=== PATIENT | female | born 2005 | race Two or more races ===

== ENCOUNTER 2025-04-15 11:10 | Outpatient (AMB) | payer OTHER, SELFPAY ==
--- NOTE | 2025-04-15 11:32 | AMB.OBINITIA ---
Vital Signs 04/15/25 11:33 Height 1.52 m Height Method Stated Weight 55.508 kg Weight Measurement Method Standing Scale BMI 23.8 BP 120/79 Blood Pressure Source Automatic Cuff Blood Pressure Location Left Upper Arm Position Sitting Respiration 16 Pulse 85 Pulse Source Monitor Temp 97.2 F Temp Source Oral Pulse Oximetry (%) 98 Oxygen Delivery Method Room Air Allergies/Home Meds Allergies & Medications Allergies No Known Allergies Allergy (Verified 04/15/25 11:35) Medication Reconciliation No Known Home Medications 04/15/25 [History Confirmed 04/15/25] Intake Visit Data Collection New Patient or Established: New Patient (never been to [facility]) Reason for Visit:: OB TRANSFER Seen by Clinical Staff ONLY (RN/MA): No Professor Of Graphic Design Required: No Do You Feel Safe at Home: Yes Authorities Contacted: N/A PCP or OBGYN visit in last 3 months: Yes Hx Now: Yes Are you currently on any form of Control: No Last menstrual period: 08/02/24 Pain Present Currently: No Pain Scale Used: Ivory-Schmitz/Numerical Pain scale:: 0 Smoking Status Smoking Status: Never smoker Questionnaires Covid-19 Vaccine Questionnaire Has patient been vacinated for Covid-19 Have you been vacinated for Covid-19: Yes PHQ-9 PHQ-2 Over the last 2 weeks, how often have you been bothered by any of the following problems? 1. Little interest or pleasure in doing things: not at all 2. Feeling down, depressed, or hopeless: not at all Total score: 0 PHQ-9 3. Trouble falling or staying asleep, or sleeping too much: Not at all 4. Feeling tired or having little energy: Not at all 5. Poor appetite or overeating: Not at all 6. Feeling bad about yourself - or that you are a failure or have let yourself or your family down: Not at all 7. Trouble concentrating on things, such as reading the newspaper or watching television: Not at all 8. Moving or speaking so slowly that other people could have noticed? - Or the opposite - being so fidgety or restless that you have been moving around a lot more than usual: not at all 9. Thoughts that you would be better off or of hurting yourself in some way: Not at all Total score: 0 If you checked off any problems, how difficult have these problems made it for you to do your work, take care of things at home, or get along with other people?: not difficult at all Source: Developed by Drs. Hernando Taylor, Brinda George, Jose Juan Way and colleagues, with an educational dilan from [employer]. Depression screen completed yes Social History Living Situation History Marital Status: Lives With: Family Housing: House Tobacco History Smoking Status: Never smoker Second Hand Smoke Exposure: No Alcohol History Alcohol Intake: Never Domestic Abuse History Do You Feel Safe at Home: Yes History of Present Illness HPI Narrative 19-year-old 2 para 1 for OBI. Patient has records. Patient was seen at [place] for her initial care. Father the baby is deployed so mom moved back with her mom for the rest of the . Last period August 02, 2024. Estimated due date based on last menstrual period May 09, 2025. First ultrasound was November 29, 2024. Patient was 17 weeks 2 and this confirmed due date. Patient then had a 21-week ultrasound that also confirmed due date of May 09, 2025. Denies social habits. Denies surgery. Denies chronic illness. Patient is A+, antibody screen negative, RPR nonreactive, rubella immune, hepatitis B negative, hep C negative, HIV negative, GC and Chlamydia were negative. Patient had a normal 1 hour. Her H&H is 12.5/36. And her NIPT and carrier screens were all negative. Occasional contractions and pressure. Denies leaking or bleeding at this time and reports good mood OB Initial Visit OB Flowsheet OB Flowsheet Initial Weight: Not Recorded Date <del>?</del> EGA Weight BP Alb Glu CTX Pres Fundal ht FHR Mov Dilation Station Effacement Hx Notes Visit Note 04/15/25 <del>?</del> 36w 4d 55.508 kg 120/79 occasional cephalic 36 145 active 19-year-old 2 para 1 for OBI with records. Patient has been followed at [facility] for her care. Her partner is deployed. She has not had any problems with the . Reports good movement. Denies leaking and bleeding. Occasional contraction impression GBS today. Discussed labor precautions. Kick count twice a day. Discussed ER precautions and danger signs symptoms with parameters. Return in a week for OB check Menstrual History Menstrual reliability: definite Flow: normal Menstrual regularity: regular Monthly: Yes Age at menarche: 13 On control pills at conception: No OB History : 2 Para: 1 Hx # Pregnancies: 0 Hx Total # of Abortions (Spontaneous & Elective): 0 # of Living Children: 1 Delivery History 1st : Child's name: NOT PROVIDED date: 07/08/23 sex: female Delivery type: vaginal weight (lbs): 3175.147 g History of depression before or after : No Infection History & Risk Evaluation History of STDs: none HIV risk evaluation: low risk Hepatitis B risk evaluation: low risk Patient or partner has history of Genital Herpes: No Varicella/chicken pox status: immunized Genetic Screening & History Genetic Screening/Teratology Counseling - Includes patient, baby's father, or anyone in either family with: 1. Patient's age 35 years or older as of estimated date of delivery: No 2. Thalassemia ([place], Norwegian, Mediterranean, or Background); MCV less than 80: No 3. Neural Tube Defect (Meningomyelocele, Spina Bifida, or Anencephaly): No 4. Congenital Heart Defect: No 5. Down Syndrome: No 6. Tomas-Sachs (Ashkenazi Roman Catholic, Cajun, Czech [place]): No 7. Romain Disease (Ashkenazi Roman Catholic): No 8. Familial Dysautonomia (Ashkenazi Roman Catholic): No 9. Sickle Cell Disease or Trait (): No 10. Hemophilia or other blood disorders: No 11. Muscular Dystrophy: No 12. Cystic Fibrosis: No 13. Whitfield's Chorea: No 14. Mental Retardation/Autism: No 15. Other inherited genetic or chromosomal disorder: No 16. Maternal Metabolic Disorder (EG,TYPE 1 Diabetes, PKU): No 17. Patient or baby's father had a child with defects not listed above: No 18. Recurrent loss or a stillbirth: No 19. Medications (including supplements, vitamins, herbs or otc drugs)/illicit/recreational drugs/alcohol since last menstrual period: No 20. Any other: No Infection History 1. Live with someone with TB or exposed to TB: No 2. Rash or viral illness since last menstrual period: No 3. Hepatitis B,C: No Other (see comments) Source: [employer] Review of Systems Review of Systems Systems Reviewed: All systems reviewed, normal except as documented Exam General Limitations: no limitations General Appearance: alert, in no apparent distress, comfortable, cooperative, healthy appearing, well developed and well groomed Head Head exam: atraumatic, normocephalic and normal inspection ENT ENT exam: Present normal exam, normal oropharynx and mucous membranes moist Chest Chest inspection: Present normal inspection and symmetric chest wall rise Resp Respiratory exam: Present normal lung sounds bilaterally Psych Psychiatric exam: Present normal affect and normal mood Office Procedures OB Clinic LOC & Office Proc's Nursing/Assessment Patient Status: Initial/New Patient OB Clinic Nursing Assessment: Medication Reconciliation, Update PMH in EMR and Vital Signs OB Clinic Coordination of Care: Education Complex Pt/Fam, Consent,records obtained, informed consent, Lab and Imaging orders, Results/Orders obtained and Staff clarify orders Special Needs: Heart tones New Patient Charge New Patient Point Assignment: [id number] New Patient Point Charge: ENGINEERING DIRECTOR Level 3 (1963-0100) Assessment & Plan Diagnosis / Problem List (1) Encounter for supervision of high risk in third trimester, antepartum: Status: Acute Plan GBS today. Continue prenatals. Discussed labor precautions. Kick counts twice a day. Discussed danger signs and symptoms and ER precautions return in a week OB check Additional Plan Follow Up: 1 Week (obc)
[2025-04-15 11:33] VITALS: BP 120/79; PULSE 85; RESP 16; TEMP 36.2; O2SAT 98; BMI 23.8
== END 2025-04-15 12:07 | disposition home or self-care (01) ==
LOC: HODSOBC 11:10
PROVIDERS: Supervising Provider Advanced Practice Midwife; Visit Provider Advanced Practice Midwife
DX: O09.93 Supervision of high risk pregnancy, unspecified, third trimester (principal); Z36.85 Encounter for antenatal screening for Streptococcus B; Z3A.36 36 weeks gestation of pregnancy
CPT/HCPCS: 99203; G0463

== ENCOUNTER 2025-04-24 10:10 | Outpatient (AMB) | payer OTHER, SELFPAY ==
[2025-04-24 10:32] VITALS: BP 113/74; PULSE 67; RESP 16; TEMP 36.2; O2SAT 98; BMI 24.2
--- NOTE | 2025-04-24 10:32 | OBCLNT_ITS ---
Vital Signs 04/24/25 10:32 Height 1.52 m Height Method Stated Weight 55.877 kg Weight Measurement Method Standing Scale BMI 24.2 BP 113/74 Blood Pressure Source Automatic Cuff Blood Pressure Location Left Upper Arm Position Sitting Respiration 16 Pulse 67 Pulse Source Monitor Temp 97.2 F Temp Source Oral Pulse Oximetry (%) 98 Oxygen Delivery Method Room Air Allergies/Home Meds Allergies & Medications Allergies No Known Allergies Allergy (Verified 04/24/25 10:33) Medication Reconciliation No Known Home Medications 04/15/25 [History Confirmed 04/24/25] Intake Visit Data Collection New Patient or Established: Established Patient (seen at [facility] within 3 years) Reason for Visit:: OBC Seen by Clinical Staff ONLY (RN/MA): No Electronic Equipment Installer Required: No Do You Feel Safe at Home: Yes Authorities Contacted: N/A PCP or OBGYN visit in last 3 months: Yes Date of Last PCP or OBGYN visit: 04/15/25 Hx Now: Yes Are you currently on any form of Control: No Pain Present Currently: No Pain Scale Used: Ivory-Schmitz/Numerical Pain scale:: 0 Smoking Status Smoking Status: Never smoker Questionnaires Covid-19 Vaccine Questionnaire Has patient been vacinated for Covid-19 Have you been vacinated for Covid-19: Yes PHQ-9 PHQ-2 Over the last 2 weeks, how often have you been bothered by any of the following problems? 1. Little interest or pleasure in doing things: not at all 2. Feeling down, depressed, or hopeless: not at all Total score: 0 PHQ-9 3. Trouble falling or staying asleep, or sleeping too much: Not at all 4. Feeling tired or having little energy: Not at all 5. Poor appetite or overeating: Not at all 6. Feeling bad about yourself - or that you are a failure or have let yourself or your family down: Not at all 7. Trouble concentrating on things, such as reading the newspaper or watching television: Not at all 8. Moving or speaking so slowly that other people could have noticed? - Or the opposite - being so fidgety or restless that you have been moving around a lot more than usual: not at all 9. Thoughts that you would be better off or of hurting yourself in some way: Not at all Total score: 0 If you checked off any problems, how difficult have these problems made it for you to do your work, take care of things at home, or get along with other people?: not difficult at all Source: Developed by Drs. Hernando Taylor, Brinda George, Jose Juan Way and colleagues, with an educational dilan from [employer]. Depression screen completed yes Social History Living Situation History Lives With: Family Housing: House Tobacco History Smoking Status: Never smoker Second Hand Smoke Exposure: No Alcohol History Alcohol Intake: Never Domestic Abuse History Do You Feel Safe at Home: Yes Care OB Visit Log OB Flowsheet Initial Weight: Not Recorded Date -?-?-?-?-?-?-?-?-?-?-?-?- EGA Weight BP Alb Glu CTX Pres Fundal ht FHR Mov Dilation Station Effacement Hx Notes Visit Note 04/15/25 -?-?-?-?-?-?-?-?-?-?-?-?- 36w 4d 55.508 kg 120/79 occasional cephalic 36 145 active 19-year-old 2 para 1 for OBI with records. Patient has been followed at [facility] for her care. Her partner is deployed. She has not had any problems with the . Reports good movement. Denies leaking and bleeding. Occasional contraction impression GBS today. Discussed labor precautions. Kick count twice a day. Discussed ER precautions and danger signs symptoms with parameters. Return in a week for OB check 04/24/25 -?-?-?-?-?-?-?-?-?-?-?-?- 37w 6d 55.877 kg 113/74 occasional cephalic 37 145 active 1 -3 50 SVE: soft,post/vertex healing you gave her amoxicillin to treat her that she still has green discharge probably has a yeast infection and so she wanted [facility] especially with green discharge maybe twice a year or something else but you tell me amoxicillin is n ot sufficient for treatment with that. Light[place] was [place] SVE: soft,post/vertex. discuss labor precaution, fkc bid, discuss ER precaution, rtc 1 week. denies leaking, bledding. pressure Discussed GBS results. Discussed labor precautions. Kick count twice a day. Discussed danger signs symptoms and ER precautions return in a week OB check ISHMAEL Calculator Estimated Delivery Date Method Current WG Current Estimate 05/09/25 LMP (Certain) 37w 6d Other Estimates 05/07/25 Ultrasound #1 38w 1d 05/09/25 Manual 37w 6d final ishmael: Notes Visit Date: 04/24/25 Last Updated by: Miriam Young CNM 04/24: GBS:- Visit Date: 04/15/25 Last Updated by: Miriam Young CNM 19 yo . lmp 08/02/24. EDC 05/09/25. 1st sono: 11/29/24: 17w2, efw: 51%, edc 05/07/25. Final ishmael: 05/09/25. A+,abs-, HIV-,HC-,HBSAG-, RPR::NR, Rub Imm, Gc/CT-, 1 hr gtt wnl, 12.5/36, NIPT-/carrier screen- Office Procedures OB Clinic LOC & Office Proc's Nursing/Assessment Patient Status: Established Patient OB Clinic Nursing Assessment: Medication Reconciliation, Update PMH in EMR and Vital Signs OB Clinic Coordination of Care: Education Complex Pt/Fam, Consent,records obtained, informed consent, Lab and Imaging orders, Results/Orders obtained and Staff clarify orders Special Needs: Heart tones Established Patient Charge Established Patient Point Assignment: 115 Established Patient Point Charge: EP Level 3 (80-115) Assessment & Plan Diagnosis / Problem List (1) Encounter for supervision of high risk in third trimester, antepartum: Status: Acute Plan fkc bid, discuss labor precaution, discuss ER precaution reviewed GBS, rtc 1 week Additional Plan Follow Up: 1 Week (obc)
== END 2025-04-24 10:53 | disposition home or self-care (01) ==
PROVIDERS: Supervising Provider Advanced Practice Midwife; Visit Provider Advanced Practice Midwife
DX: O09.93 Supervision of high risk pregnancy, unspecified, third trimester (principal); Z3A.37 37 weeks gestation of pregnancy
CPT/HCPCS: 99213; G0463

== ENCOUNTER 2025-04-29 10:39 | Inpatient (IN) | payer OTHER, SELFPAY ==
[2025-04-29] VITALS (51 sets, daily range): BP systolic 99–146; BP diastolic 55–87; PULSE 75–116; RESP 16–98; TEMP 2.4–36.9; O2SAT 91–99; BMI 24.2; BMI 24.0
[2025-04-29 11:28] LABS: Basophils # (Auto) 0.0 Thou/mm3 (0.0-0.2); Basophils % (Auto) 0 % (0-2.5); Eosinophils # (Auto) 0.0 Thou/mm3 (0.0-0.5); Eosinophils % (Auto) 0 % (0-10); Hematocrit 41.6 % (36.0-46.0); Hemoglobin 14.6 g/dL (12.0-16.0); Immature Granulocytes Auto 0.05 Thou/mm3 (0.00-0.00); Lymphocytes # (Auto) 1.4 Thou/mm3 (1.0-4.8); Lymphocytes % (Auto) 14 % (10-50); Mean Corpuscular HGB Conc 35.1 g/dl (31.0-37.0); Mean Corpuscular Hemoglobin 33.0 pg (25.0-35.0); Mean Corpuscular Volume 94 fL (80-100); Monocytes # (Auto) 0.4 Thou/mm3 (0.0-0.8); Monocytes % (Auto) 4 % (0-12); Neutrophils # (Auto) 8.3 Thou/mm3 (1.8-7.7); Neutrophils % (Auto) 81 % (37-80); Nucleated Red Blood Cell # 0.00 Thou/mm3 (0.00-0.00); Nucleated Red Blood Cell % 0 /100 WBC (0); Platelet Count 121 Thou/mm3 (140-440); RDW Standard Deviation 42.1 fL (36.4-46.3); Red Blood Count 4.42 Miln/mm3 (4.00-5.20); White Blood Count 10.2 Thou/mm3 (3.6-11.0)
[2025-04-29 12:06] LABS: Syphilis Nonreactive (Nonreactive)
[2025-04-29] MEDS: MINERAL OIL 30 ML UDC TOP (13:16)
[2025-04-29] MEDS: OXYTOCIN INJ 10 UNIT/ML VIAL IM (13:34)
[2025-04-29] MEDS: OXYTOCIN in NS 20 units 20 UNIT/1,000 ML BAG 125 UNIT IV (13:35)
[2025-04-29] MEDS: LIDOCAINE HCL 1% 20 ML VIAL INFL (13:39)
[2025-04-29] MEDS: BENZO/LANO/ALOE (Dermoplast) 60 GM CAN 1 SPRAY TOP (13:43)
[2025-04-29] MEDS: IBUPROFEN TAB 400 MG TABLET 800 MG PO (13:46)
--- NOTE | 2025-04-29 13:55 | PD.LDHP ---
Documentation for date of: 04/29/25 OB Labor/Induct. HPI History of Present Illness Chief complaint: labor : 2 Para: 1 pregnancies: 0 Living children: 1 History of Abortions: Spontaneous and Elective: 0 History of Vaginal deliveries: 1 History of : No Date of last menstrual period: 08/02/24 ISHMAEL: 05/09/25 Gestational Age (weeks): 38 Gestational Age (days): 4 Gestational age based on last menstrual period: 38 History of present illness: 19-year-old 2 para 1 admitted to labor and delivery with complaints of contractions since 3 in the morning. Denies leaking. Patient was a transfer of care from a clinic in [place] with records. First visit with [facility] medical OB clinic was at 36 and 4. Her partner is in the [employer] and he is deployed at this time. Last. 08/02/2024. EDC is May 09, 2025. Her first ultrasound was in November. And this confirmed dates. Patient denies existence of chronic illnesses. Denies social habits. Denies surgeries. Patient is A+, antibody screen negative, RPR nonreactive, rubella, hepatitis B negative, hep C negative, HIV negative, GC and Chlamydia were negative. Her 1 hour screen was negative. GBS is negative. Patient has had no problems with History of Present Dating criteria: LMP confirmed by 1st trimester US Adequate Care: Yes Ultrasounds: normal 1st trimester US and normal mid trimester US Obstetrical complications: none Medical complications: none Labs Labs: Negative: RPR, Hepatitis B, Rubella Titre, HIV, Chlamydia, Gonorrhea and Group Beta Strep and Unknown: Herpes Type 1, Herpes Type 2 and Covid-19 Review of Systems Review of Systems Systems Reviewed: All systems reviewed, normal except as documented Meds Home Medications and Allergies Home Medications ?Medication ?Instructions ?Recorded ?Confirmed ?Type vitamins with calcium 1 tab PO QDAY 04/29/25 04/29/25 History no.72-iron 27 mg-folic acid 1 mg tablet (M-Lucia Plus) Allergies Allergy/AdvReac Type Severity Reaction Status Date / Time No Known Allergies Allergy Verified 04/29/25 11:33 OB Exam Physical Exam Vital signs: Temp Pulse Resp BP Pulse Ox 97.9 F 94 18 116/72 93 L 04/29/25 11:59 04/29/25 13:53 04/29/25 11:59 04/29/25 13:53 04/29/25 13:26 Narrative: Normal heart rate and rhythm. Lungs clear no wheezes. Gravid abdomen. Gynecoid pelvis. Estimated weight 7 pounds. Vaginal exam on admission was 90%, 7-8, -2. Vertex. heart category 1 with accelerations and moderate variability and contractions every 3 minutes. Bag water intact Routine Cardiovascular Exam Cardiovascular: Present RRR Detailed Labor and Delivery Exam Dilation (cm): 7-8 Effacement (%): 90 Cervix position: mid station: -2 Consistency: soft Presentation: Vertex Cervical ripeness score: 8 Membranes: intact Baseline heart rate: 145 monitor accelerations: 15x15 monitor decelerations: None keno terminal operator variability: Moderate (11-25) Contraction frequency (min): 2-4 Contraction duration (sec): 40 Tachysystole: No Contraction intensity: Moderate OB Results Labs 04/29/25 11:10 Labs: Short CBC 04/29/25 Range/Units 11:10 WBC 10.2 (3.6-11.0) Thou/mm3 Hgb 14.6 (12.0-16.0) g/dL Hct 41.6 (36.0-46.0) % Plt Count 121 L (140-440) Thou/mm3 OB Assessment & Plan Assessment and Plan (1) Encounter for supervision of high risk in third trimester, antepartum: Status: Acute (2) Normal labor and delivery: Status: Acute Additional Plan Induction method: none Plan: anticipate NVD and consult MD hugo
--- NOTE | 2025-04-29 14:01 | PD.LDDELS ---
Data (Bird) Data : 2 : 0 Livin Abortions: Spontaneous & Theraputic: 0 Delivery Data (Bird) Labor Data Initiation of labor: Spontaneous Induction/Augmentation Agent: None ROM date: 04/29/25 ROM time: 12:13 Amniotic membrane rupture type: Artificial Amniotic fluid description: Light Meconium Delivery Data EDC: 05/09/25 EDC calculated by:: LMP/early US confirmation Date of arrival to unit: 04/29/25 Time of arrival to unit: 10:39 Onset of labor date: 04/29/25 Onset of labor time: 03:00 Complete dilation date: 04/29/25 Complete dilation time: 12:51 [place] delivery date: 04/29/25 [place] delivery time: 13:27 Gestational age (weeks): 38 Gestational age (days): 4 Placenta delivery date: 04/29/25 Placenta delivery time: 13:35 Stage 1 total time: Labor - Stage 1 Duration 9 hours and 51 minutes Delivered by: Mono Delivery nurse: oMiz Phillips nurse: Rafita Saucedo Segregator at delivery: No Support person(s) at delivery: Grandmother of baby, aunt of baby. Delivery Method Delivery method: Normal Vaginal Delivery Presentation: Vertex position: OP Anesthesia Type Anesthesia Type: None and Local Delivery Room Medications Delivery room medications: Lidocaine (local), Pitocin 10 u IM, Pitocin 20 u IV, Cytotec 800 VT and other (TXA) Placenta Placenta delivery description: Spontaneous (inspected intact) Cord blood sent to lab: Yes cord blood collection: Cord Blood Type Episiotomy Episiotomy description: None Lacerations #1: Vaginal: 1st degree (2 stitch) Perineal repair Sutures used for repair: 3.0 Chromic EBL Estimated blood loss (ml): 400 Umbilical Cord cord description: 3 Vessels and Nuchal Cord (x1) Data (Bird) [place] Data order: 1 's gender: Female Identification band number: [id number] 1 minute: 9 5 minutes: 9
[2025-04-29] MEDS: TRANEXAMIC ACID 1,000 MG IVPB 1,000 MG/100 ML BAG 200 MG IV (14:04)
[2025-04-29] MEDS: METHYLERGONOVINE 0.2 MG TABLET PO (15:41)
[2025-04-29] MEDS: DOCUSATE SOD 100 MG CAPSULE PO (20:12)
[2025-04-29 23:16] LABS: Basophils # (Auto) 0.0 Thou/mm3 (0.0-0.2); Basophils % (Auto) 0 % (0-2.5); Eosinophils # (Auto) 0.1 Thou/mm3 (0.0-0.5); Eosinophils % (Auto) 0 % (0-10); Hematocrit 38.2 % (36.0-46.0); Hemoglobin 13.3 g/dL (12.0-16.0); Immature Granulocytes Auto 0.06 Thou/mm3 (0.00-0.00); Lymphocytes # (Auto) 1.7 Thou/mm3 (1.0-4.8); Lymphocytes % (Auto) 12 % (10-50); Mean Corpuscular HGB Conc 34.8 g/dl (31.0-37.0); Mean Corpuscular Hemoglobin 32.9 pg (25.0-35.0); Mean Corpuscular Volume 95 fL (80-100); Monocytes # (Auto) 0.9 Thou/mm3 (0.0-0.8); Monocytes % (Auto) 6 % (0-12); Neutrophils # (Auto) 11.1 Thou/mm3 (1.8-7.7); Neutrophils % (Auto) 81 % (37-80); Nucleated Red Blood Cell # 0.00 Thou/mm3 (0.00-0.00); Nucleated Red Blood Cell % 0 /100 WBC (0); Platelet Count 109 Thou/mm3 (140-440); RDW Standard Deviation 42.1 fL (36.4-46.3); Red Blood Count 4.04 Miln/mm3 (4.00-5.20); White Blood Count 13.8 Thou/mm3 (3.6-11.0)
[2025-04-30] MEDS: IBUPROFEN TAB 400 MG TABLET 800 MG PO (02:38)
[2025-04-30 03:49] VITALS: BP 106/68; PULSE 74; RESP 16; TEMP 36.8; O2SAT 98
[2025-04-30 08:00] VITALS: BP 104/67; PULSE 72; RESP 16; TEMP 36.7; O2SAT 98
[2025-04-30] MEDS: DOCUSATE SOD 100 MG CAPSULE PO (08:00)
--- NOTE | 2025-04-30 08:27 | PD.LDPPPRG ---
Subjective Subjective Interval history: No complaints of pain. No dizziness. Bonding breast Exam Vital Signs Temp Pulse Resp BP Pulse Ox 98.3 F 74 16 106/68 98 04/30/25 03:49 04/30/25 03:49 04/30/25 03:49 04/30/25 03:49 04/30/25 03:49 Narrative Exam Vital signs stable afebrile. Breasts are soft. Fundus firm below umbilicus. Perineum intact no swelling. Small laceration. Uterus well involuted. Negative Homans' sign. 2+ DTRs Objective Labs 04/29/25 23:04 Labs: Laboratory Results - last 24 hr 04/29/25 04/29/25 11:10 23:04 WBC 10.2 13.8 H RBC 4.42 4.04 Hgb 14.6 13.3 Hct 41.6 38.2 MCV 94 95 MCH 33.0 32.9 MCHC 35.1 34.8 RDW Std Deviation 42.1 42.1 Plt Count 121 L 109 L Neut % (Auto) 81 H 81 H Lymph % (Auto) 14 12 [place] % (Auto) 4 6 Eos % (Auto) 0 0 Baso % (Auto) 0 0 Neut # (Auto) 8.3 H 11.1 H Lymph # (Auto) 1.4 1.7 [place] # (Auto) 0.4 0.9 H Eos # (Auto) 0.0 0.1 Baso # (Auto) 0.0 0.0 Immature Gran # (Auto) 0.05 H 0.06 H Absolute Nucleated RBC 0.00 0.00 Immature Gran % 1 H 0 Nucleated RBC % 0 0 Syphilis Serology Nonreactive Blood Type A Positive Antibody Screen NEGATIVE Blood Bank Wristband ID Yes Assessment & Plan Problem List (1) Encounter for supervision of high risk in third trimester, antepartum: Status: Acute (2) Normal labor and delivery: Status: Acute Assessment Comment Assessment comment: 24 hr pp Plan Comment Plan Comment: Tension with baby. Continue vitamins and iron. Tylenol ibuprofen for pain. Discussed danger signs symptoms and ER precautions. I discussed signs and symptoms of infection. Increase fluids. Rest. Return in 3 weeks visit Time Spent With Patient Time: Total time spent is greater than 50% in coordination of care (as documented) at patient's floor/unit and/or counseling patient:
--- NOTE | 2025-04-30 08:30 | PD.LDDS ---
DS: Providers Provider Date of admission: 04/29/25 10:58 Primary care physician: Physician No Primary/Family Admitting Provider: Miriam Young CNM Attending Provider on Admission: Miriam Young CNM Consults: 04/29/25 15:33 Referral Routine Comment: Attending Provider on DC: Miriam Young CNM Discharging Provider: Miriam Young CNM DS: Diagnosis Problem List Completed Was Problem List Reviewed/Reconciled?: Yes Summary/Hosp Course Brief History: 19-year-old 2 para 1 admitted to labor and delivery with complaints of contractions since 3 in the morning. Denies leaking. Patient was a transfer of care from a clinic in [place] with records. First visit with [facility] [place] medical OB clinic was at 36 and 4. Her partner is in the [employer] and he is deployed at this time. Last. 08/02/2024. EDC is May 09, 2025. Her first ultrasound was in November. And this confirmed dates. Patient denies existence of chronic illnesses. Denies social habits. Denies surgeries. Patient is A+, antibody screen negative, RPR nonreactive, rubella, hepatitis B negative, hep C negative, HIV negative, GC and Chlamydia were negative. Her 1 hour screen was negative. GBS is negative. Patient has had no problems with Peripartum Data Delivery Method: Normal Vaginal Delivery Episiotomy Description: None Laceration Description: yes (small vag, 3 stitch) complications: none Time Spent with Patient Time attestation: Total time spent providing and/or coordinating discharge services: Exam Vital Signs Temp Pulse Resp BP Pulse Ox 98.3 F 74 16 106/68 98 04/30/25 03:49 04/30/25 03:49 04/30/25 03:49 04/30/25 03:49 04/30/25 03:49 Discharge Plan Plan Patient Disposition: HOME (Self Care) Patient condition on transfer: Stable Prescriptions/Referrals Prescriptions/Med Rec: No Action M-Lucia Plus 27 mg iron- 1 mg tablet 1 tab PO QDAY Referrals: No Primary/Family,Physician [Primary Care Provider] Patient/Caregiver Discharge Instructions Meds to Beds: No Discharge Activity: resume usual activities Print Language: Macedonian Activity Restrictions/Additional Instructions: Discharge home with baby. Continue vitamins and iron. Tylenol ibuprofen for pain. Discussed danger signs symptoms and ER precautions. Discussed signs and symptoms of infection with parameters. Please rest. Increase fluids. Return in 3 weeks visit Stand Alone Forms: Marleen Award Info., Patient Portal Info Letter Discharge Order Discharge Orders: Discharge (Routine); Ordered 04/30/25 Ordered By: Miriam Young Planned Discharge Date 04/30/25
[2025-04-30 16:57] VITALS: BP 109/63; PULSE 66; RESP 16; TEMP 36.5; O2SAT 97
== END 2025-04-30 17:05 | disposition home or self-care (01) | DRG 807 ==
LOC: S4SX 14:25 → S4NX 16:17
PROVIDERS: Admitting Provider Advanced Practice Midwife; Visit Provider Advanced Practice Midwife
DX: O69.81X0 Labor and delivery complicated by cord around neck, without compression, not applicable or unspecified (principal); Z37.0 Single live birth; O70.0 First degree perineal laceration during delivery; O77.0 Labor and delivery complicated by meconium in amniotic fluid; Z3A.38 38 weeks gestation of pregnancy
CPT/HCPCS: 36415; 59025; 59409; 85025; 86780; 86850; 86900; 86901; 94762; J2590; J3490; S0191; A9270

== ENCOUNTER 2025-05-29 09:54 | Outpatient (AMB) | payer OTHER, SELFPAY ==
--- NOTE | 2025-05-29 10:03 | AMB.OBPP ---
Vital Signs 05/29/25 10:08 Weight 49.215 kg Weight Measurement Method Standing Scale BP 95/65 Blood Pressure Source Automatic Cuff Blood Pressure Location Left Upper Arm Position Sitting Respiration 16 Pulse 65 Pulse Source Monitor Temp 97.2 F Temp Source Oral Pulse Oximetry (%) 98 Oxygen Delivery Method Room Air Allergies/Home Meds Allergies & Medications Allergies No Known Allergies Allergy (Verified 05/29/25 10:09) Medication Reconciliation vitamins with calcium no.72-iron 27 mg-folic acid 1 mg tablet (M- Plus) 1 tab PO QDAY 04/29/25 [History Confirmed 05/29/25] metronidazole 500 mg tablet 500 mg PO BID 7 days #14 tabs 05/29/25 [Rx] vits no.130-ferrous fum 27 mg iron-folic acid 800 mcg tablet ( Vitamin) 1 tab PO QDAY pregancy #60 tabs 05/29/25 [Rx] Intake Visit Data Collection New Patient or Established: Established Patient (seen at [facility] within 3 years) Reason for Visit:: OBC Seen by Clinical Staff ONLY (RN/MA): No Slicing Machine Operator Required: No Do You Feel Safe at Home: Yes Authorities Contacted: N/A PCP or OBGYN visit in last 3 months: Yes Date of Last PCP or OBGYN visit: 04/30/25 Hx Now: Yes Are you currently on any form of Control: No Pain Present Currently: No Pain Scale Used: Ivory-Schmitz/Numerical Pain scale:: 0 Smoking Status Smoking Status: Never smoker Immunizations Flu Vaccine in the Last 12 Months: No Flu Vaccine Exclusion Criteria: No Exclusion Criteria STAGING TECHNICIAN: Past Medical History Past Medical History: No Hx Neurological Disorders, No Hx Cardiac Disorders, No Hx Cancer, No Hx Blood Disorders, No Hx Anemia, No Hx Gastrointestinal Disorders, No Hx Renal Disease, No Hx Diabetes Mellitus Type 1 and No Hx Diabetes Mellitus Type 2 Questionnaires Covid-19 Vaccine Questionnaire Has patient been vacinated for Covid-19 Have you been vacinated for Covid-19: Yes Social History Living Situation History Marital Status: Single Lives With: Family Housing: House Tobacco History Smoking Status: Never smoker Second Hand Smoke Exposure: No Alcohol History Alcohol Intake: Never Domestic Abuse History Do You Feel Safe at Home: Yes EPDS - PP Depression Screening [place] Pospartum Depression Screen I have been able to laugh and see the funny side of things: (0) As much as I always could I have looked forward with enjoyment to things: (0) As much as I ever did I have blamed myself unnecessarily when things went wrong: (0) No, never I have been anxious or worried for no good reason: (0) No, not at all I have felt scared or panicky for no very good reason: (0) No, not at all Things have been getting on top of me: (0) No, I have been coping as well as ever I have been so unhappy that I have had difficulty sleeping: (0) No, not at all I have felt sad or miserable: (0) No, not at all I have been so unhappy that I have been crying: (0) No, never The thought of harming myself has occurred to me: (0) Never Total Score: EPDS Score: Referral is indicated for score of 9 or more, suicidal, or if provider believes patient is depressed regardless of score.: 0 EPDS completed yes Care OB Visit Log OB Flowsheet Initial Weight: Not Recorded Date <del>?</del> EGA Weight BP Alb Glu CTX Pres Fundal ht FHR Mov Dilation Station Effacement Hx Notes Visit Note 04/15/25 <del>?</del> 36w 4d 55.508 kg 120/79 occasional cephalic 36 145 active 19-year-old 2 para 1 for OBI with records. Patient has been followed at [facility] for her care. Her partner is deployed. She has not had any problems with the . Reports good movement. Denies leaking and bleeding. Occasional contraction impression GBS today. Discussed labor precautions. Kick count twice a day. Discussed ER precautions and danger signs symptoms with parameters. Return in a week for OB check 04/24/25 <del>?</del> 37w 6d 55.877 kg 113/74 occasional cephalic 37 145 active 1 -3 50 SVE: soft,post/vertex healing you gave her amoxicillin to treat her that she still has green discharge probably has a yeast infection and so she [facility] especially with green discharge maybe twice a year or something else but you tell me amoxicillin is not sufficient for treatment with that. Lightheadedand susy Marvin explains SVE: soft,post/vertex. discuss labor precaution, fkc bid, discuss ER precaution, rtc 1 week. denies leaking, bledding. pressure Discussed GBS results. Discussed labor precautions. Kick count twice a day. Discussed danger signs symptoms and ER precautions return in a week OB check ISHMAEL Calculator Estimated Delivery Date Method Current WG Current Estimate 05/09/25 LMP (Certain) 42w 6d Other Estimates 05/07/25 Ultrasound #1 43w 1d 05/09/25 Manual 42w 6d final ishmael:05/09/25 Notes Visit Date: 04/24/25 Last Updated by: Miriam Fonseca CNM 04/24: GBS:- Visit Date: 04/15/25 Last Updated by: Miriam Fonseca CNM 19 yo . lmp 08/02/24. EDC 05/09/25. 1st sono: 11/29/24: 17w2, efw: 51%, edc 05/07/25. Final ishmael: 05/09/25. A+,abs-, HIV-,HC-,HBSAG-, RPR::NR, Rub Imm, Gc/CT-, 1 hr gtt wnl, 12.5/36, NIPT-/carrier screen- HPI Interval History: 19-year-old 2 para 2 for 4-week . Patient was 36 and 6 when she delivered. She delivered May 02, 2025. A vaginal . A baby girl weighing 7 pounds 1. She is breast and bottlefeeding. Very happy but tired. The father has been deployed with [email or web address]. She has good support at home. Complains of a foul-smelling discharge. No complaints of pain patient would like to start the minipill but she is not ready for it yet Was or delivery considered high risk: No Delivery type: vaginal Was labor induced: no Gestational age at delivery (weeks): 38.6 Delivery date: 05/02/25 Delivering provider: sofia fonseca Delivery complications: Yes Delivery complications comment: post bleeding Is patient : Yes Is patient sexually active: No Contraception planned: mini pill Review of Systems Review of Systems ROS limited to current STAGING TECHNICIAN complaints: Yes Exam Narrative Physical exam: Normal heart rate and rhythm. Lungs clear no wheezes. Abdomen is soft nontender. Uterus well involuted. Perineum is intact no lacerations. No swelling. Small lochia. Negative Homans' sign. 2+ DTRs. No edema no swelling. Breasts are soft. bloody discharge. + whiff Office Procedures OBC Clinic LOC & Office Proc's Nursing/Assessment Patient Status: Established Patient OB Clinic Nursing Assessment: Medication Reconciliation, Update PMH in EMR and Vital Signs OB Clinic Coordination of Care: Consent,records obtained, informed consent, Education Simp Pt/Fam, Lab and Imaging orders, Results/Orders obtained and Staff clarify orders Special Needs: Heart tones Established Patient Charge Established Patient Point Assignment: 110 Established Patient Point Charge: EP Level 3 (80-115) Assessment & Plan Diagnosis / Problem List (1) 6 weeks follow-up: Status: Acute Plan Comfort measures for vaginal pain. Started Flagyl 500 p.o. twice daily. No feminine products. Increase rest and fluids. Continue prenatals. And I refilled those. Patient will return in 4 weeks for follow-up and control start. I did review control pills with the patient and latching. Care Uterus involuted to: 3 below Perineal / incision healing noted: Yes Screened for depression: Yes Depression counseling provided: No Discussed family planning & contraception: Yes Contraception planned: mini pill Counseling on safe resumption of sexual activity: Yes Counseling on gradual excercise: Yes Discussed and concerns (describe), provided support: Yes Referred to research specialist: No Counseled on good nutrition, hydration, and self care: Yes Reviewed vaccine status: No care discussed; questions answered: feeding Follow up: routine/prn Additional counseling & anticipatory guidance provided: Metronidazole x 5. Discussed JIMENEZ care and comfort measures. Increase fluids. Continue prenatals and those were refilled. Return in 4 weeks for follow-up
[2025-05-29 10:08] VITALS: BP 95/65; PULSE 65; RESP 16; TEMP 36.2; O2SAT 98
== END 2025-05-29 10:42 | disposition home or self-care (01) ==
LOC: HODSOBC 09:54
PROVIDERS: Supervising Provider Advanced Practice Midwife; Visit Provider Advanced Practice Midwife
DX: Z39.2 Encounter for routine postpartum follow-up (principal); O90.89 Other complications of the puerperium, not elsewhere classified; R10.20 Pelvic and perineal pain unspecified side; Z39.1 Encounter for care and examination of lactating mother
CPT/HCPCS: 99213; G0463

== ENCOUNTER 2025-06-26 10:20 | Outpatient (AMB) | payer OTHER, SELFPAY ==
[2025-06-26 10:32] VITALS: BP 104/69; PULSE 64; RESP 18; TEMP 36.7; O2SAT 96; BMI 21.0
--- NOTE | 2025-06-26 10:32 | AMBOBPPN_ITS ---
Vital Signs 06/26/25 10:32 Height 1.52 m Height Method Stated Weight 48.648 kg Weight Measurement Method Standing Scale BMI 21.0 BP 104/69 Blood Pressure Source Automatic Cuff Blood Pressure Location Right Upper Arm Position Sitting Respiration 18 Pulse 64 Pulse Source Monitor Temp 98.1 F Temp Source Temporal Artery Scan Pulse Oximetry (%) 96 Oxygen Delivery Method Room Air Allergies/Home Meds Allergies & Medications Allergies No Known Allergies Allergy (Verified 06/26/25 10:34) Medication Reconciliation vitamins with calcium no.72-iron 27 mg-folic acid 1 mg tablet (M- Plus) 1 tab PO QDAY 04/29/25 [History Confirmed 06/26/25] vits no.130-ferrous fum 27 mg iron-folic acid 800 mcg tablet ( Vitamin) 1 tab PO QDAY pregancy #60 tabs 05/29/25 [Rx Confirmed 06/26/25] clotrimazole 1 % vaginal cream (Gyne-Lotrimin 7) 1 appful vaginal QHS #45 grams 06/26/25 [Rx] Intake Visit Data Collection New Patient or Established: Established Patient (seen at [facility] within 3 years) Reason for Visit:: Seen by Clinical Staff ONLY (RN/MA): No Wool Hat Hydraulicker Required: No Do You Feel Safe at Home: Yes Authorities Contacted: N/A PCP or OBGYN visit in last 3 months: Yes Hx Now: No Pain Present Currently: No Pain Scale Used: Ivory-Schmitz/Numerical Pain scale:: 0 Smoking Status Smoking Status: Never smoker Immunizations Flu Vaccine in the Last 12 Months: No Flu Vaccine Exclusion Criteria: No Exclusion Criteria DISPATCHER RADIOACTIVE WASTE DISPOSAL: Past Medical History Past Medical History: No Hx Neurological Disorders, No Hx Cardiac Disorders, No Hx Cancer, No Hx Blood Disorders, No Hx Anemia, No Hx Gastrointestinal Disorders, No Hx Renal Disease, No Hx Diabetes Mellitus Type 1 and No Hx Diabetes Mellitus Type 2 Questionnaires Covid-19 Vaccine Questionnaire Has patient been vacinated for Covid-19 Have you been vacinated for Covid-19: No Social History Living Situation History Marital Status: Life Partner Lives With: Family Housing: House Tobacco History Smoking Status: Never smoker Second Hand Smoke Exposure: No Alcohol History Alcohol Intake: Never Domestic Abuse History Do You Feel Safe at Home: Yes EPDS - PP Depression Screening [place] Pospartum Depression Screen I have been able to laugh and see the funny side of things: (0) As much as I always could I have looked forward with enjoyment to things: (0) As much as I ever did I have blamed myself unnecessarily when things went wrong: (0) No, never I have been anxious or worried for no good reason: (0) No, not at all I have felt scared or panicky for no very good reason: (0) No, not at all Things have been getting on top of me: (0) No, I have been coping as well as ever I have been so unhappy that I have had difficulty sleeping: (0) No, not at all I have felt sad or miserable: (0) No, not at all I have been so unhappy that I have been crying: (0) No, never The thought of harming myself has occurred to me: (0) Never EPDS completed yes Care OB Visit Log OB Flowsheet Initial Weight: Not Recorded Date -?-?--?-?-?-?-?-?-?-?-?-?- EGA Weight BP Alb Glu CTX Pres Fundal ht FHR Mov Dilation Station Effacement Hx Notes Visit Note 04/15/25 -?-?-?-?-?-?-?-?-?-?-?-?- 36w 4d 55.508 kg 120/79 occasional cephalic 36 145 active 19-year-old 2 para 1 for OBI with records. Patient has been followed at [facility] for her care. Her partner is deployed. She has not had any problems with the . Reports good movement. Denies leaking and bleeding. Occasional contraction impression GBS today. Discussed labor precautions. Kick count twice a day. Discussed ER precautions and danger signs symptoms with parameters. Return in a week for OB check 04/24/25 -?-?-?-?-?-?-?-?-?-?-?-?- 37w 6d 55.877 kg 113/74 occasional cephalic 37 145 active 1 -3 50 SVE: soft,post/vertex healing you gave her amoxicillin to treat her that she still has green discharge probably has a yeast infection and so she wanted to see if you could send something to the [facility] something especially with green discharge maybe twice a year or something else but you tell me amoxicillin is not sufficient for treatment with that. Lightheaded[place] SVE: soft,post/vertex. discuss labor precaution, fkc bid, discuss ER precaution, rtc 1 week. denies leaking, bledding. pressure Discussed GBS results. Discussed labor precautions. Kick count twice a day. Discussed danger signs symptoms and ER precautions return in a week OB check ISHMAEL Calculator Estimated Delivery Date Method Current WG Current Estimate 05/09/25 LMP (Certain) 46w 6d Other Estimates 05/07/25 Ultrasound #1 47w 1d 05/09/25 Manual 46w 6d final ishmael: Notes Visit Date: 04/24/25 Last Updated by: Miriam Young CNM 04/24: GBS:- Visit Date: 04/15/25 Last Updated by: Miriam Young CNM 19 yo . lmp 08/02/24. EDC 05/09/25. 1st sono: 11/29/24: 17w2, efw: 51%, edc 05/07/25. Final ishmael: 05/09/25. A+,abs-, HIV-,HC-,HBSAG-, RPR::NR, Rub Imm, Gc/CT-, 1 hr gtt wnl, 12.5/36, NIPT-/carrier screen- HPI Interval History: 20-year-old 2 para 2 for 6-week . Patient had a vaginal delivery May 02, 2025. She had a baby girl weighing 7 pounds 1. She is breast and bottle feeding. The father the baby is in deployment so he will not be back until December. Patient has good home health at home but she plans to move to [place]. Declining control at this time. And patient has continued complaints of vaginal discharge yellowish-brown and it is irritating. She completed her Flagyl as directed Was or delivery considered high risk: No Delivery type: vaginal Was labor induced: no Gestational age at delivery (weeks): 38.6 Delivery date: 05/02/25 Delivering provider: sofia young Delivery complications: No Is patient infant: Yes Is patient sexually active: No Contraception planned: none Review of Systems Review of Systems ROS limited to current DISPATCHER RADIOACTIVE WASTE DISPOSAL complaints: Yes Exam Narrative Physical exam: Normal heart rate and rhythm. Lungs clear no wheezes. Abdomen is soft nontender. Uterus well involuted. Perineum is intact no lacerations. No swelling. Small lochia. Negative Homans' sign. 2+ DTRs. No edema no swelling. Breasts are soft. yellowish discharge, vag itch. perineum intact, no lesion, vagina pink Office Procedures OBC Clinic LOC & Office Proc's Nursing/Assessment Patient Status: Established Patient OB Clinic Nursing Assessment: Medication Reconciliation, Update PMH in EMR and Vital Signs OB Clinic Coordination of Care: Complex Care and Chronic Disease 1-5, Education Complex Pt/Fam, Consent,records obtained, informed consent, Results/Orders obtained and Staff clarify orders Established Patient Charge Established Patient Point Assignment: 95 Established Patient Point Charge: EP Level 3 (80-115) Antepartum Initial or Follow-up Antepartum Follow up Visit: Yes Assessment & Plan Diagnosis / Problem List (1) 6 weeks follow-up: Status: Acute (2) Vaginitis: Status: Acute Qualifiers: Chronicity: acute Qualified Code(s): N76.0 - Acute vaginitis Plan NuSwab plus today. DISPATCHER RADIOACTIVE WASTE DISPOSAL Lotrimin x 7. Comfort measures for vaginitis. I advised patient to nurse baby every 2-3 hours to help build up her milk supply. Increase fluids.. She has tablets 3 of them every 3 hours. I offered control and patient declined. Patient plans to move to [place]. Care Reviewed delivery summary and any complications: Yes Uterus involuted to: 3 below Perineal / incision healing noted: Yes Screened for depression: Yes Depression counseling provided: No Discussed family planning & contraception: Yes Contraception planned: none Counseling on safe resumption of sexual activity: Yes Counseling on gradual excercise: Yes Discussed and concerns (describe), provided support: Yes Referred to digital imaging specialist: No Counseled on good nutrition, hydration, and self care: Yes Reviewed vaccine status: No Chronic & current problems reconciled on problem list: Yes Infant care discussed; questions answered: feeding Follow up: routine/prn Additional counseling & anticipatory guidance provided: DISPATCHER RADIOACTIVE WASTE DISPOSAL Lotrimin x 7. Comfort measures for vaginitis. NuSwab plus today. Return as needed. I wish patient luck on moving
== END 2025-06-26 11:08 | disposition home or self-care (01) ==
LOC: HODSOBC 10:20
PROVIDERS: Supervising Provider Advanced Practice Midwife; Visit Provider Advanced Practice Midwife
DX: Z39.2 Encounter for routine postpartum follow-up (principal); Z39.1 Encounter for care and examination of lactating mother; O86.13 Vaginitis following delivery
CPT/HCPCS: 99213; Z1034; G0463